=== PATIENT | female | born 1985 | race Caucasian/White ===

== ENCOUNTER 2020-06-26 02:56 | Observation (INO) ==
[2020-06-26] MEDS ORDERED: *HR* FentaNYL (PF) 100 MCG/2 ML VIAL IVP ONE (03:03)
[2020-06-26] MEDS ORDERED: Isovue-370 500 ML BOTTLE IVP ONE (03:03)
[2020-06-26] MEDS ORDERED: Ondansetron 4 MG/2 ML VIAL IVP ONE (03:03)
[2020-06-26 04:02] LABS: Basophils % 0.1 %; Eosinophils # 0.1 K/mcL (0.0-0.6); Eosinophils % 0.5 %; Hematocrit 36.3 % (35.3-44.9); Hemoglobin 11.1 g/dL (11.5-15.4); Immature Granulocytes % 0.5 % (0-4); Lymphocytes # 0.9 K/mcL (0.6-4.6); Mean Corpuscular HGB Conc 30.6 g/dL (31.6-35.5); Mean Corpuscular Hemoglobin 23.4 pg (28.0-33.3); Mean Corpuscular Volume 76.4 fL (83.0-100.0); Mean Platelet Volume 8.4 fL (9.4-12.4); Monocytes # 0.9 K/mcL (0.0-1.3); Monocytes % 5.9 %; Neutrophils # 13.5 K/mcL (1.6-8.9); Platelet Count 376 K/mcL (140-400); Red Blood Count 4.75 M/mcL (3.82-4.97); Red Cell Distribution Width 17.8 % (11.5-14.5); White Blood Count 15.6 K/mcL (4.3-11.1)
[2020-06-26 04:09] LABS: BUN/Creatinine Ratio 19 (6-26); Blood Urea Nitrogen 10 mg/dL (6-20); Calcium 9.2 mg/dL (8.6-10.3); Carbon Dioxide 24 mEq/L (23-29); Chloride 101 mEq/L (98-107); Glucose 171 mg/dL (70-105); Osmolality,Calculated 283 (280-300); Potassium 3.5 mEq/L (3.5-5.1); Sodium 135 mEq/L (136-145); eGFR For African Americans > 60 (> 60); eGFR For Non-African Americans > 60 (> 60)
[2020-06-26 04:20] LABS: Bilirubin,Urine Negative (Negative); Blood,Urine Large (Negative); Clarity,Urine Clear (Clear); Color,Urine Brown (Yellow); Glucose,Urine (UA) 30 mg/dL (Normal); Ketones,Urine Trace mg/dL (Negative); Leukocyte Esterase,Urine Negative (Negative); Nitrite,Urine Negative (Negative); Protein,Urine 200 mg/dL (Neg-Trace); RBC,Urine 0-3 per hpf (0-3); Specific Gravity,Urine > 1.030 (1.010-1.025); Urobilinogen,Urine Normal (Normal)
[2020-06-26 05:11] VITALS: BP 164/107
[2020-06-26] MEDS ORDERED: Morphine Sulfate 2 MG/ML SYRINGE IVP ONE (05:28)
[2020-06-26] MEDS ORDERED: Naloxone 0.4 MG/ML INJ IVP PRN (06:01)
[2020-06-26] MEDS ORDERED: Acetaminophen 325 MG TABLET PO PRN (06:01)
[2020-06-26] MEDS ORDERED: Ondansetron 4 MG/2 ML VIAL IVP PRN (06:01)
[2020-06-26] MEDS ORDERED: 0.9 % Sodium Chloride 1,000 ML IVC SCH (06:15)
[2020-06-26] MEDS ORDERED: Morphine Sulfate 2 MG/ML SYRINGE IVP PRN (07:47)
[2020-06-26] MEDS ORDERED: Nicotine 21 MG PATCH.TD24 TD SCH (09:00)
== END 2020-06-26 07:30 | disposition left against medical advice (07) ==
LOC: EMEROOARM 02:56 → CDU 02:56
PROVIDERS: ADMIT Internal Medicine; ATTEND Internal Medicine

== ENCOUNTER 2022-01-07 22:39 | Observation (INO) ==
[2022-01-08 00:08] LABS: Basophils % 0.2 %; Eosinophils # 0.1 K/mcL (0.0-0.6); Eosinophils % 1.6 %; Hematocrit 39.7 % (35.3-44.9); Immature Granulocytes % 0.2 % (0-4); Lymphocytes # 0.7 K/mcL (0.6-4.6); Lymphocytes % 7.7 %; Mean Corpuscular Hemoglobin 26.1 pg (28.0-33.3); Mean Corpuscular Volume 81.5 fL (83.0-100.0); Mean Platelet Volume 9.1 fL (9.4-12.4); Monocytes # 0.8 K/mcL (0.0-1.3); Monocytes % 9.4 %; Neutrophils # 7.2 K/mcL (1.6-8.9); Platelet Count 323 K/mcL (140-400); Red Blood Count 4.87 M/mcL (3.82-4.97); Red Cell Distribution Width 16.1 % (11.5-14.5); Segmented Neutrophils % 80.9 %; White Blood Count 8.9 K/mcL (4.3-11.1)
[2022-01-08 00:14] LABS: Hemoglobin 12.7 g/dL (11.5-15.4)
[2022-01-08 00:17] LABS: Bacteria,Urine Few per hpf (None-Few); Bilirubin,Urine Small (Negative); Blood,Urine Large (Negative); Clarity,Urine Turbid (Clear); Color,Urine Yellow (Yellow); Glucose,Urine (UA) 30 mg/dL (Normal); Ketones,Urine 10 mg/dL (Negative); Leukocyte Esterase,Urine Small (Negative); Mucus,Urine Few per lpf (None-Few); Nitrite,Urine Negative (Negative); Protein,Urine 100 mg/dL (Neg-Trace); RBC,Urine 30-50 per hpf (0-3); Specific Gravity,Urine > 1.030 (1.010-1.025); Squamous Epithelial Cell,Urine Many per hpf (None-Few)
[2022-01-08 00:25] LABS: Alanine Aminotransferase 10 Units/L (7-52); Albumin/Globulin Ratio 1.3 (1.1-2.2); Alkaline Phosphatase 52 Units/L (34-104); Aspartate Amino Transferase 17 Units/L (13-39); BUN/Creatinine Ratio 18 (6-26); Bilirubin,Direct 0.1 mg/dL (0.0-0.2); Bilirubin,Indirect 0.3 mg/dL (0.0-1.0); Bilirubin,Total 0.4 mg/dL (0.3-1.0); Blood Urea Nitrogen 10 mg/dL (6-20); Calcium 9.5 mg/dL (8.6-10.3); Carbon Dioxide 33 mEq/L (23-29); Chloride 94 mEq/L (98-107); Globulin 3.1 g/dL (2.4-3.5); Glucose 155 mg/dL (70-105); Lipase 8 Units/L (11-82); Osmolality,Calculated 280 (280-300); Potassium 3.8 mEq/L (3.5-5.1); Sodium 134 mEq/L (136-145); Total Protein 7.1 g/dL (6.4-8.9); eGFR For African Americans > 60 (> 60); eGFR For Non-African Americans > 60 (> 60)
[2022-01-08] MEDS ORDERED: 0.9 % Sodium Chloride 1,000 ML IV ONE (01:43)
[2022-01-08] MEDS ORDERED: Iopamidol - 370 500 ML MLS IVP ONE (01:43)
[2022-01-08] MEDS ORDERED: Ondansetron 4 MG/2 ML VIAL IVP ONE (01:56)
[2022-01-08] MEDS ORDERED: Ketorolac 30 MG/ML VIAL IVP ONE (01:56)
[2022-01-08] MEDS ORDERED: Ketorolac 30 MG/ML VIAL IM PRN (03:58)
[2022-01-08] MEDS ORDERED: Naloxone 0.4 MG/ML INJ IVP PRN (03:58)
[2022-01-08] MEDS ORDERED: Ondansetron 4 MG/2 ML VIAL IVP PRN (03:58)
[2022-01-08] MEDS ORDERED: 0.9 % Sodium Chloride 1,000 ML IVC SCH (04:00)
[2022-01-08] MEDS ORDERED: Prochlorperazine 10 MG/2 ML VIAL IVP ONE (04:13)
[2022-01-08] MEDS ORDERED: Ipratropium/Albuterol Neb 3 ML IH PRN (04:46)
[2022-01-08 06:03] LABS: Hematocrit 37.1 % (35.3-44.9); Hemoglobin 11.9 g/dL (11.5-15.4); Mean Corpuscular HGB Conc 32.1 g/dL (31.6-35.5); Mean Corpuscular Hemoglobin 26.6 pg (28.0-33.3); Mean Corpuscular Volume 82.8 fL (83.0-100.0); Mean Platelet Volume 9.3 fL (9.4-12.4); Platelet Count 254 K/mcL (140-400); Red Blood Count 4.48 M/mcL (3.82-4.97); Red Cell Distribution Width 16.3 % (11.5-14.5); White Blood Count 6.3 K/mcL (4.3-11.1)
[2022-01-08 06:22] LABS: BUN/Creatinine Ratio 18 (6-26); Blood Urea Nitrogen 10 mg/dL (6-20); Calcium 9.1 mg/dL (8.6-10.3); Carbon Dioxide 33 mEq/L (23-29); Chloride 95 mEq/L (98-107); Glucose 122 mg/dL (70-105); Magnesium 1.7 mg/dL (1.6-2.6); Osmolality,Calculated 280 (280-300); Phosphorous 4.2 mg/dL (2.7-4.5); Potassium 3.7 mEq/L (3.5-5.1); Sodium 135 mEq/L (136-145); eGFR For African Americans > 60 (> 60); eGFR For Non-African Americans > 60 (> 60)
[2022-01-08 06:27] LABS: INR 1.2
[2022-01-08 06:29] LABS: Activated Partial Thrombo Time 28.4 Seconds (26.0-36.0)
[2022-01-08] MEDS ORDERED: D5% in Water 1,000 ML IVC PRN (07:44)
[2022-01-08] MEDS ORDERED: Dextrose Gel 15 GM/37.5 ML TUBE PO PRN ×2 (07:44)
[2022-01-08] MEDS ORDERED: *HR* Dextrose 50 % in Water (Syg) 50 ML SYRINGE IVP PRN (07:44)
[2022-01-08] MEDS ORDERED: Nicotine 21 MG PATCH.TD24 TD SCH (09:00)
[2022-01-08] MEDS ORDERED: cefTRIAXone 2,000 MG in 0.9 % Sodium Chloride 20 ML IVP SCH (09:00)
[2022-01-08 09:44] VITALS: BP 132/86; PULSE 116; TEMP 98.8; O2SAT 93
[2022-01-08] MEDS ORDERED: Insulin LISPRO 300 UNITS/3 ML VIAL SUBQ SCH (12:00)
== END 2022-01-08 10:57 | disposition left against medical advice (07) ==
LOC: EMEROOARM 22:39 → 3ANU 22:39 → SUATTDRO 01-08 04:07 → 3ANU 01-08 04:55
PROVIDERS: ADMIT Internal Medicine; ATTEND Nurse Practitioner